=== PATIENT | female | born 2000 | race Caucasian/White ===

== ENCOUNTER 2024-10-29 21:08 | Emergency (ER) | payer SELFPAY ==
[2024-10-29] MEDS ORDERED: predniSONE 20 MG TAB ONE (21:28)
[2024-10-29] MEDS ORDERED: METHYLPREDNISOLONE 125 MG INJ ONE (21:28)
[2024-10-29] MEDS ORDERED: DIPHENHYDRAMINE 50 MG/ML VIAL ONE (21:29)
[2024-10-29] MEDS ORDERED: FAMOTIDINE 20 MG/2 ML VIAL IV ONE (21:29)
[2024-10-29] MEDS ORDERED: NA CHLORIDE 0.9% 1,000 ML ONE (21:29)
[2024-10-29 21:54] LABS: Absolute Lymphocytes (CBC) 2.4 K/uL (0.7-4.9); Hematocrit 39.3 % (36.0-45.0); Hemoglobin 13.9 g/dL (12.0-15.0); MCH 31.8 pg (27.0-35.0); MCHC 35.3 g/dL (32.0-36.0); MCV 90.2 fL (80-100); MPV 8.3 fL (7.6-11.3); Nucleated RBC Absolute Count 0.0 (0-0); Nucleated Red Blood Cells % 0.2 % (0-0); RBC Red Blood Cell Count 4.36 M/uL (3.86-4.86); White Blood Count 7.60 thou/uL (4.3-10.9)
[2024-10-29 21:57] LABS: Sqamous Epithelial <5 /HPF (None Seen); Urine Culture Reflex Order REFLEXED; Urine Microscopic Reflex YN ORDER UMIC
[2024-10-29 22:13] LABS: ALT/SGPT 24.0 U/L (13-56); AST/SGOT 14.0 U/L (15-37); Albumin 3.7 g/dL (3.4-5.0); Albumin/Globulin Ratio 1.2 (1.1-1.8); Alkaline Phosphatase 60.0 U/L (45-117); Anion Gap 8.7 mEq/L (5.0-15.0); BUN Blood Urea Nitrogen 14.0 mg/dL (7-18); Globulin 3.2 g/dL (2.3-3.5); Glucose Level 100.0 mg/dL (74-106); Potassium 3.7 mEq/L (3.5-5.1)
--- NOTE | 2024-10-29 22:20 | ER ---
Nurse's Notes [facility] Name: Rose Flores Age: 24 yrs Sex: Female : 2000 Arrival Date: 10/29/2024 Time: 21:08 Bed 3 Private MD: Diagnosis: Allergy, unspecified;Urticaria, unspecified;UTI/ Urinary tract infection, site not specified Presentation: 10/29 21:22 Chief complaint: Patient states: I was doing some yard work yesterday and this morning bm8 woke up with minor swelling, stinging and redness to face and chest. I also feel like I am having some trouble breathing. 21:22 Coronavirus screen: At this time, the client does not indicate any symptoms associated bm8 with coronavirus-19. Ebola Screen: No symptoms or risks identified at this time. Onset: The symptoms/episode began/occurred gradually. Anaphylaxis evaluation, no signs or symptoms of anaphylaxis were noted. Initial Sepsis Screen: Does the patient meet any 2 criteria? No. Patient's initial sepsis screen is negative. Does the patient have a suspected source of infection? No. Patient's initial sepsis screen is negative. Risk Assessment: Do you want to hurt yourself or someone else? Patient reports no desire to harm self or others. Onset of symptoms was October 29, 2024 at 07:00. 21:22 Method Of Arrival: Ambulatory 8 21:22 Acuity: JUANITO 3 bm8 21:39 Care prior to arrival: Medication(s) given: Benadryl 100 mg po \T\ 1700. bm8 Triage Assessment: 21:36 General: Appears in no apparent distress. uncomfortable, Behavior is calm, cooperative, bm8 appropriate for age. Pain: Complains of pain in face and chest on skin Pain currently is 6 out of 10 on a pain scale. EENT: No deficits noted. No signs and/or symptoms were reported regarding the EENT system. Neuro: No deficits noted. Level of Consciousness is awake, alert, obeys commands, Oriented to person, place, time, situation, Appropriate for age. Cardiovascular: Denies chest pain, Heart tones S1 S2 present Capillary refill < 3 seconds in bilateral fingers Patient's skin is warm and dry. Respiratory: Airway is patent Respiratory effort is even, unlabored, Respiratory pattern is regular, symmetrical, Breath sounds are clear bilaterally. the patient reports symptoms have resolved. GI: No deficits noted. No signs and/or symptoms were reported involving the gastrointestinal system. : No deficits noted. No signs and/or symptoms were reported regarding the genitourinary system. Derm: Rash noted that is red, on face, scalp, back and chest Reports itching, stinging. Musculoskeletal: No deficits noted. No signs and/or symptoms reported regarding the musculoskeletal system. 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 - Infectious Disease History:: Denies. - Social history:: Smoking status: Patient reports the use of cigarette tobacco products, smokes one pack cigarettes per day. - Family history:: not pertinent. Screenin:[address] [facility] ED Fall Risk Assessment (Adult) History of falling in the last 3 months, bm8 including since admission No falls in past 3 months (0 pts) Confusion or Disorientation No (0 pts) Intoxicated or Sedated No (0 pts) Impaired Gait No (0 pts) Mobility Assist Device Used No (0 pt) Altered Elimination No (0 pt) Score/Fall Risk Level 0 - 2 = Low Risk Oriented to surroundings, Maintained a safe environment, Educated pt \T\ family on fall prevention, incl call for assistance when getting out of bed, Assessed \T\ reinforced patient's understanding of fall precautions, Hourly rounding (assess needs \T\ fall precautionary measures) done, Used ambulatory aids as needed (educated on \T\ assisted with), Used gait belt as appropriate. Abuse screen: Denies threats or abuse. Nutritional screening: No deficits noted. Tuberculosis screening: No symptoms or risk factors identified. Assessment: 22:30 Reassessment: Patient appears in no apparent distress at this time. Patient and/or bm8 family updated on plan of care and expected duration. Pain level reassessed. Patient is alert, oriented x 3, equal unlabored respirations, skin warm/dry/pink. Patient states feeling better. Patient states symptoms have improved. Reassessment: redness is reduced, mild stinging still present. Respiratory: Airway is patent Respiratory effort is even, unlabored, Respiratory pattern is regular, symmetrical, Breath sounds are clear bilaterally. Vital Signs: 21:22 BP 119 / 79; Pulse 71; Resp 17; Temp 98.9; Pulse Ox 100% on R/A; Weight 68.04 kg; bm8 Height 5 ft. 2 in. ; Pain 6/10; 22:30 BP 109 / 65; Pulse 70; Resp 17; Temp 98.9; Pulse Ox 96% ; Pain 2/10; bm8 21:22 Body Mass Index 27.44 (68.04 kg, 157.48 cm) bm8 21:22 Pain Scale: Adult bm8 22:30 Pain Scale: Adult bm8 [place] Coma Score: 21:38 Eye Response: spontaneous(4). Motor Response: obeys commands(6). Verbal Response: bm8 oriented(5). Total: 15. 22:30 Eye Response: spontaneous(4). Motor Response: obeys commands(6). Verbal Response: bm8 oriented(5). Total: 15. ED Course: 21:09 Patient arrived in ED. mr 21:12 Arian Meyer MD is Attending Physician. hernando 21:33 Gonsalo Harrington, RN is Primary Nurse. bm8 21:36 Triage completed. bm8 21:38 Arm band placed on right wrist. bm8 21:38 Patient has correct armband on for positive identification. Bed in low position. Call bm8 light in reach. Side rails up X 1. Client placed on continuous cardiac and pulse oximetry monitoring. NIBP monitoring applied. classroom monitor on. Pulse ox on. NIBP on. Door closed. Noise minimized. Pillow given. Verbal reassurance given. Head of bed elevated. 21:38 No provider procedures requiring assistance completed. Initial lab(s) drawn, by ED bm8 staff, sent to lab. Inserted saline lock: 18 gauge in right upper arm, using aseptic technique. Blood collected. Flushed with 10 mL NS. Patient maintains SpO2 saturation greater than 95% on room air. 22:30 Provided Education on: post er care. bm8 22:39 IV discontinued, intact, bleeding controlled, No redness/swelling at site. Pressure bm8 dressing applied. Administered Medications: 21:35 Drug: NS 0.9% IV 1000 ml IV at 1000 ml once; to be given as a bolus over 60 minutes bm8 Route: IV; Rate: 1000 ml; Site: right upper arm; 22:30 Follow up: Response: No adverse reaction; IV Status: Completed infusion bm8 21:35 Drug: MethylPrednisoLONE IVP 125 mg IVP once Route: IVP; Site: right upper arm; bm8 22:30 Follow up: Response: No adverse reaction bm8 21:36 Drug: Famotidine IVP 40 mg IVP once; dilute with 10 mL 0.9% NaCl; give over 2 minutes bm8 Route: IVP; Site: right upper arm; 22:30 Follow up: Response: No adverse reaction bm8 21:38 Drug: predniSONE PO 60 mg PO once Route: PO; rg5 22:30 Follow up: Response: No adverse reaction bm8 21:44 Not Given (Duplicate Order): [id number] mg IVP once hernando 22:24 Not Given (Patient Refused): kkagxklbcqlexqn27 mg IVP once 22:28 Drug: Rocephin IV 1 grams IV at per protocol once; Given slow IV push per pharmacy bm8 instructions Route: IV; Rate: per protocol; Site: right upper arm; 22:35 Follow up: Response: No adverse reaction; IV Status: Completed infusion bm8 22:39 Follow up: Response: No adverse reaction; IV Status: Completed infusion bm8 Medication: 21:38 VIS not applicable for this client. bm8 Outcome: 22:18 Discharge ordered by . [facility] 22:39 Discharged to home ambulatory, bm8 22:39 Condition: stable 22:39 Discharge instructions given to patient, Instructed on discharge instructions, follow up and referral plans. no drinking with medication, no driving heavy equipment, medication usage, safety practices, Demonstrated understanding of instructions, follow-up care, medications, Prescriptions given X 5 22:40 Patient left the ED. bm8 Addendum: 11/03/2024 17:04 Addendum: Culture Results: Positive urine culture. Bacteria is resistant to, has s s intermediate sensitivity, or is not tested against prescribed antibiotics. Report given to SHANTAL for further evaluation and then to psychiatry adult physician for follow up with patient. Phone call Attempt #1 Nay Shelby NP recommends to stop taking Cipro at take Bactrim at this time. Pt verbalizes understanding. RX called in to Health system pharmacy in as requested. Signatures: Arian Meyer MD MD cha Rivera, Mary, Reg Reg mr Sushma Dong, RN RN ss Gonsalo Harrington RN RN 8 Robert Weeks, AVTAR RN 5 Lana Bacon RN Corrections: (The following items were deleted from the chart) 10/29 22:29 21:35 MethylPrednisoLONE IVP 125 mg IVP in right antecubital [place] [id number] 22: 21:36 Famotidine IVP 40 mg IVP in right antecubital [place] [address] 22:30 21:35 NS 0.9% IV 1000 ml IV at 1000 ml in right antecubital [place] [address]
--- NOTE | 2024-10-29 22:20 | EDPHYS ---
Physician Documentation [facility] Name: Rose Flores Age: 24 yrs Sex: Female : 2000 Arrival Date: 10/29/2024 Time: 21:08 Bed 3 Private MD: RADHA Physician Arian Meyer HPI: 10/29 21:34 This 24 yrs old Female presents to ER via Unassigned with complaints of hernando Allergic Reaction. 21:34 The patient presents with rash, redness of skin. Onset: The symptoms/episode hernando began/occurred 2 day(s) ago. Associated signs and symptoms: The patient has no apparent associated signs or symptoms. Possible causes: The patient has no known obvious cause for the symptoms. At home the patient or guardian has treated the symptoms with Benadryl. Severity of symptoms: At their worst the symptoms were mild in the emergency department the symptoms are unchanged. The patient has experienced similar episodes in the past, a few times. 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 - Infectious Disease History:: Denies. - Social history:: Smoking status: Patient reports the use of cigarette tobacco products, smokes one pack cigarettes per day. - Family history:: not pertinent. ROS: 21:34 Constitutional: Negative for fever, chills, and weight loss, Eyes: Negative for injury, hernando pain, redness, and discharge, ENT: Negative for injury, pain, and discharge, Neck: Negative for injury, pain, and swelling, Cardiovascular: Negative for chest pain, palpitations, and edema, Respiratory: Negative for shortness of breath, cough, wheezing, and pleuritic chest pain, Abdomen/GI: Negative for abdominal pain, nausea, vomiting, diarrhea, and constipation, Back: Negative for injury and pain, : Negative for injury, bleeding, discharge, and swelling, MS/Extremity: Negative for injury and deformity, Neuro: Negative for headache, weakness, numbness, tingling, and seizure, Psych: Negative for depression, anxiety, suicide ideation, homicidal ideation, and hallucinations, Allergy/Immunology: Negative for hives, rash, and allergies, Endocrine: Negative for neck swelling, polydipsia, polyuria, polyphagia, and marked weight changes, Hematologic/Lymphatic: Negative for swollen nodes, abnormal bleeding, and unusual bruising, 21:34 Skin: Positive for rash, Exam: 21:34 Constitutional: This is a well developed, well nourished patient who is awake, alert, hernando and in no acute distress. Head/Face: Normocephalic, atraumatic. Eyes: Pupils equal round and reactive to light, extra-ocular motions intact. Lids and lashes normal. Conjunctiva and sclera are non-icteric and not injected. Cornea within normal limits. Periorbital areas with no swelling, redness, or edema. ENT: Nares patent. No nasal discharge, no septal abnormalities noted. Tympanic membranes are normal and external auditory canals are clear. Oropharynx with no redness, swelling, or masses, exudates, or evidence of obstruction, uvula midline. Mucous membranes moist. Neck: Trachea midline, no thyromegaly or masses palpated, and no cervical lymphadenopathy. Supple, full range of motion without nuchal rigidity, or vertebral point tenderness. No Meningismus. Chest/axilla: Normal chest wall appearance and motion. Nontender with no deformity. No lesions are appreciated. Cardiovascular: Regular rate and rhythm with a normal S1 and S2. No gallops, murmurs, or rubs. Normal PMI, no JVD. No pulse deficits. Respiratory: Lungs have equal breath sounds bilaterally, clear to auscultation and percussion. No rales, rhonchi or wheezes noted. No increased work of breathing, no retractions or nasal flaring. Abdomen/GI: Soft, non-tender, with normal bowel sounds. No distension or tympany. No guarding or rebound. No evidence of tenderness throughout. Back: No spinal tenderness. No costovertebral tenderness. Full range of motion. Female : Normal external genitalia. MS/ Extremity: Pulses equal, no cyanosis. Neurovascular intact. Full, normal range of motion., bilateral aka Neuro: Awake and alert, GCS 15, oriented to person, place, time, and situation. Cranial nerves II-XII grossly intact. Motor strength 5/5 in all extremities. Sensory grossly intact. Cerebellar exam normal. Normal gait. Psych: Awake, alert, with orientation to person, place and time. Behavior, mood, and affect are within normal limits. 21:34 Skin: Appearance: Color: erythematous, Temperature: normal temperature, Moisture: normal moisture, petechiae, not noted, ecchymosis, not noted, abscess, not appreciated, cellulitis, is not appreciated, induration, is not appreciated, Vital Signs: 21:22 BP 119 / 79; Pulse 71; Resp 17; Temp 98.9; Pulse Ox 100% on R/A; Weight 68.04 kg; bm8 Height 5 ft. 2 in. ; Pain 6/10; 22:30 BP 109 / 65; Pulse 70; Resp 17; Temp 98.9; Pulse Ox 96% ; Pain 2/10; bm8 21:22 Body Mass Index 27.44 (68.04 kg, 157.48 cm) bm8 21:22 Pain Scale: Adult bm8 22:30 Pain Scale: Adult bm8 [place] Coma Score: 21:38 Eye Response: spontaneous(4). Motor Response: obeys commands(6). Verbal Response: bm8 oriented(5). Total: 15. 22:30 Eye Response: spontaneous(4). Motor Response: obeys commands(6). Verbal Response: bm8 oriented(5). Total: 15. MDM: 21:29 Medical Screening Exam initiated hernando 21:38 Differential diagnosis: anaphylaxis, angioedema, Arrhythmias Status Asthmaticus hernando urticaria. Data reviewed: vital signs, nurses notes, lab test result(s). Consideration of Admission/Observation Escalation of care including admission/observation considered. I considered the following discharge prescriptions or medication management in the emergency department Medications were administered in the Emergency Department. See MAR. Test considered but Not performed: EKG: no ekg. 10/29 21:15 Order name: CBC with Diff; Complete Time: 22:08 [facility] 10/29 21:15 Order name: CMP; Complete Time: : [facility] 10/29 21:15 Order name: UA Rfx Kodi Cult if indicated; Complete Time: 22:08 [facility] 10/29 21:15 Order name: PREGU; Complete Time: 22:08 [facility] 10/29 22:02 Order name: Urine Culture EDMS Administered Medications: 21:35 Drug: NS 0.9% IV 1000 ml IV at 1000 ml once; to be given as a bolus over 60 minutes bm8 Route: IV; Rate: 1000 ml; Site: right upper arm; 22:30 Follow up: Response: No adverse reaction; IV Status: Completed infusion bm8 21:35 Drug: MethylPrednisoLONE IVP 125 mg IVP once Route: IVP; Site: right upper arm; bm8 22:30 Follow up: Response: No adverse reaction bm8 21:36 Drug: Famotidine IVP 40 mg IVP once; dilute with 10 mL 0.9% NaCl; give over 2 minutes bm8 Route: IVP; Site: right upper arm; 22:30 Follow up: Response: No adverse reaction bm8 21:38 Drug: predniSONE PO 60 mg PO once Route: PO; rg5 22:30 Follow up: Response: No adverse reaction bm8 21:44 Not Given (Duplicate Order): nsfrqevycomlydr05 mg IVP once hernando 22:24 Not Given (Patient Refused): adqqrcrzdalvakp62 mg IVP once zm 22:28 Drug: Rocephin IV 1 grams IV at per protocol once; Given slow IV push per pharmacy bm8 instructions Route: IV; Rate: per protocol; Site: right upper arm; 22:35 Follow up: Response: No adverse reaction; IV Status: Completed infusion bm8 22:39 Follow up: Response: No adverse reaction; IV Status: Completed infusion bm8 Disposition Summary: 10/29/24 22:18 Discharge Ordered Notes: Location: Home hernando Problem: new hernando Symptoms: have improved hernando Condition: Stable hernando Diagnosis - Allergy, unspecified hernando - Urticaria, unspecified hernando - UTI/ Urinary tract infection, site not specified hernando Followup: hernando - With: Private Physician - When: 2 - 3 days - Reason: Recheck today's complaints, Continuance of care, Re-evaluation by your physician Discharge Instructions: - Discharge Summary Sheet hernando - Allergies, Adult hernando - Hives hernando - Urinary Tract Infection, Adult hernando - Urinary Tract Infection, Adult, Sfht-ry-Uaii hernando - Rash, Adult, Arbk-ff-Klmu hernando - Hives, Zofh-vb-[id number] hernando - Rash, Pediatric, [place]-iv-Dhru hernando Forms: - Medication Reconciliation Form hernando - Antibiotic Education hernando - Prescription Opioid Use hernando - Patient Portal Instructions hernando - Leadership Thank You Letter [facility] Prescriptions: - EpiPen 2-Riccardo - inject 1 application INTRAMUSCULAR route once; 2 Pack; Refills: 0, Product hernando Selection Permitted - Pepcid 40 mg Oral tablet - take 1 tablet ORAL route 2 times per day; 28 tablet; Refills: 0, Product hernando Selection Permitted - Benadryl 25 mg Oral capsule - take 2 capsule ORAL route every 6 hours As needed; 40 tablet; Refills: 0, [facility] Product Selection Permitted - Cipro 250 mg Oral tablet - take 1 tablet ORAL route every 12 hours; 14 tablet; Refills: 0, Product hernando Selection Permitted - Prednisone 20 mg Oral Tablet - take 2 tablets ORAL route once daily for 5 days; 10 tablet; Refills: 0, Product hernando Selection Permitted Signatures: Dispatcher [employer] EDMS Arian Meyer MD MD cha McDonald, Brad RN RN bm8 Robert Weeks RN RN rg5 Lana Bacon RN zm Corrections: (The following items were deleted from the chart) 21:15 21:15 CBC+H.LAB.BRZ ordered. EDMS EDMS 21:15 21:15 COMPREHENSIVE METABOLIC PANEL+C.LAB.BRZ ordered. EDMS EDMS 21:15 21:15 UA Rfx Kodi Cult if indicated+U.LAB.BRZ ordered. EDMS EDMS 21:15 21:15 Test, Urine+UC.LAB.BRZ ordered. EDMS EDMS
[2024-10-29] MEDS ORDERED: NA CHLORIDE 0.9% 100 ML ONE (22:25)
[2024-10-29] MEDS ORDERED: CEFTRIAXONE 1000 MG/VIAL ONE (22:25)
[2024-10-29 22:45] VITALS: TEMP 98.9
[2024-10-29 22:47] VITALS: BP 109/65; O2SAT 96
== END 2024-10-29 22:40 | disposition home or self-care (01) ==
LOC: ER 21:08
DX: L50.9 Urticaria, unspecified (principal); N39.0 Urinary tract infection, site not specified; F17.210 Nicotine dependence, cigarettes, uncomplicated
CPT/HCPCS: 36415; 80053; 81001; 81025; 85025; 87077; 87086; 87088; 87186; 96361; 96374; 96375; 99285; J0696; J1200; J2919; J7030; J7512

== ENCOUNTER 2024-11-14 09:04 | Emergency (ER) | payer SELFPAY ==
--- NOTE | 2024-11-14 09:30 | EDPHYS ---
Physician Documentation [facility] Name: Rose Flores Age: 24 yrs Sex: Female : 2000 Arrival Date: 11/14/2024 Time: 09:04 Bed 7 Private MD: ED Physician Annmarie Mills HPI: 11/14 09:25 This 24 yrs old Female presents to ER via Unassigned with complaints of Rash. sp3 09:25 24-year-old female seen here 2 weeks ago for possible allergic reaction due to itching sp3 and redness now presents for recurrent and worsening symptoms. She states that her itching is too worse. She describes it as intertriginous with it also being on her feet, ankles and underarms. She is concerned about scabies and states that other people and family are now having similar symptoms.. Historical: - Allergies: : No Known Allergies; ap3 - PMHx: : None; ap3 - PSHx: 09:27 section; ap3 - Immunization history:: Adult Immunizations unknown. - Infectious Disease History:: Denies. - Social history:: Smoking status: Patient reports the use of cigarette tobacco products, smokes one-half pack cigarettes per day, Patient uses delta 8. ROS: 09:26 Constitutional: Negative for fever, chills, and weight loss, Eyes: Negative for injury, sp3 pain, redness, and discharge, ENT: Negative for injury, pain, and discharge, Neck: Negative for injury, pain, and swelling, Cardiovascular: Negative for chest pain, palpitations, and edema, Respiratory: Negative for shortness of breath, cough, wheezing, and pleuritic chest pain, Abdomen/GI: Negative for abdominal pain, nausea, vomiting, diarrhea, and constipation, Back: Negative for injury and pain, Neuro: Negative for headache, weakness, numbness, tingling, and seizure, Psych: Negative for depression, anxiety, suicide ideation, homicidal ideation, and hallucinations, Allergy/Immunology: Negative for hives, rash, and allergies, Endocrine: Negative for neck swelling, polydipsia, polyuria, polyphagia, and marked weight changes, Hematologic/Lymphatic: Negative for swollen nodes, abnormal bleeding, and unusual bruising, 09:26 All other systems are negative, Exam: : Constitutional: This is a well developed, well nourished patient who is awake, alert, sp3 and in no acute distress. Head/Face: Normocephalic, atraumatic. Eyes: Pupils equal round and reactive to light, extra-ocular motions intact. Lids and lashes normal. Conjunctiva and sclera are non-icteric and not injected. Cornea within normal limits. Periorbital areas with no swelling, redness, or edema. Neck: Trachea midline, no thyromegaly or masses palpated, and no cervical lymphadenopathy. Supple, full range of motion without nuchal rigidity, or vertebral point tenderness. No Meningismus. Chest/axilla: Normal chest wall appearance and motion. Nontender with no deformity. No lesions are appreciated. Cardiovascular: Regular rate and rhythm with a normal S1 and S2. No gallops, murmurs, or rubs. Normal PMI, no JVD. No pulse deficits. Respiratory: Lungs have equal breath sounds bilaterally, clear to auscultation and percussion. No rales, rhonchi or wheezes noted. No increased work of breathing, no retractions or nasal flaring. Abdomen/GI: Soft, non-tender, with normal bowel sounds. No distension or tympany. No guarding or rebound. No evidence of tenderness throughout. Back: No spinal tenderness. No costovertebral tenderness. Full range of motion. Neuro: Awake and alert, GCS 15, oriented to person, place, time, and situation. Cranial nerves II-XII grossly intact. Motor strength 5/5 in all extremities. Sensory grossly intact. Cerebellar exam normal. Normal gait. Psych: Awake, alert, with orientation to person, place and time. Behavior, mood, and affect are within normal limits. 09:26 Skin: Areas of eczematous scaling noted intertriginous, underarms, ankles, feet.. Vital Signs: 09:26 BP 115 / 67; Pulse 67; Resp 18; Temp 98; Pulse Ox 100% ; Weight 65.32 kg; ap3 MDM: 09:19 Medical Screening Exam initiated sp3 09:27 Data reviewed: vital signs, nurses notes. ED course: Differential diagnosis includes sp3 eczema, allergic reaction, scabies. She is most concerned about scabies and we will treat topically given low risk of any harm if misdiagnosed.. Administered Medications: No medications were administered Disposition Summary: 11/14/24 09:29 Discharge Ordered Notes: Location: Home sp3 Condition: Stable sp3 Diagnosis - Scabies sp3 Followup: sp3 - With: Private Physician - When: Upon discharge from the Emergency Department - Reason: Continuance of care Discharge Instructions: - Discharge Summary Sheet sp3 - Scabies, Adult sp3 Forms: - Work release form eb - Medication Reconciliation Form sp3 - Antibiotic Education sp3 - Prescription Opioid Use sp3 - Patient Portal Instructions sp3 - Leadership Thank You Letter sp3 Prescriptions: - permethrin 1 % Topical liquid - apply 120 milliliter TOPICAL route once; 1 Unspecified; Refills: 0, Product sp3 Selection Permitted Signatures: Roxane Looney RN RN ap3 Annmarie Mills MD MD sp3
--- NOTE | 2024-11-14 09:30 | ER ---
Nurse's Notes [facility] Name: Rose Flores Age: 24 yrs Sex: Female : 2000 Arrival Date: 11/14/2024 Time: 09:04 Bed 7 Private MD: Diagnosis: Scabies Presentation: 11/14 09:26 Chief complaint: Patient states: she has been itching on her face, arms, stomach, hands ap3 and feet since 10/22 after moving from [place]. patient reports that the symptoms are now spreading to the rest of her family and her neighbors as well. Coronavirus screen: At this time, the client does not indicate any symptoms associated with coronavirus-19. Ebola Screen: No symptoms or risks identified at this time. Initial Sepsis Screen: Does the patient meet any 2 criteria? No. Patient's initial sepsis screen is negative. Does the patient have a suspected source of infection? No. Patient's initial sepsis screen is negative. Risk Assessment: Do you want to hurt yourself or someone else? Patient reports no desire to harm self or others. Onset of symptoms was October 22, 2024. 09:26 Method Of Arrival: Ambulatory ap3 09:26 Acuity: JUANITO 4 ap3 Triage Assessment: 09:28 General: Appears uncomfortable, Behavior is calm, cooperative, appropriate for age. ap3 Pain: Complains of pain in face, abdomen, right hand, left hand, right arm and left arm. Neuro: Level of Consciousness is awake, alert, obeys commands, Oriented to person, place, time, situation. Cardiovascular: Patient's skin is warm and dry. Respiratory: Airway is patent Respiratory effort is even, unlabored, Respiratory pattern is regular, symmetrical. Derm: Reports itching. Historical: - Allergies: 09:27 No Known Allergies; ap3 - PMHx: 09:27 None; ap3 - PSHx: 09:27 section; ap3 - Immunization history:: Adult Immunizations unknown. - Infectious Disease History:: Denies. - Social history:: Smoking status: Patient reports the use of cigarette tobacco products, smokes one-half pack cigarettes per day, Patient uses delta 8. Screenin:29 Abuse screen: Denies threats or abuse. Nutritional screening: No deficits noted. ap3 Tuberculosis screening: No symptoms or risk factors identified. 09:55 [facility] ED Fall Risk Assessment (Adult) History of falling in the last 3 months, jl7 including since admission No falls in past 3 months (0 pts) Confusion or Disorientation No (0 pts) Intoxicated or Sedated No (0 pts) Impaired Gait No (0 pts) Mobility Assist Device Used No (0 pt) Altered Elimination No (0 pt) Score/Fall Risk Level 0 - 2 = Low Risk Oriented to surroundings, Maintained a safe environment. Assessment: 09:55 General: Appears in no apparent distress. uncomfortable, Behavior is calm, cooperative, jl7 appropriate for age. Pain: Denies pain. Neuro: Priest Agitation-Sedation Scale (RASS): 0 - Alert and Calm Level of Consciousness is awake, alert, obeys commands, Oriented to person, place, time, situation. Cardiovascular: Patient's skin is warm and dry. Respiratory: Airway is patent Respiratory effort is even, unlabored, Respiratory pattern is regular, symmetrical. Derm: Skin is pink, warm \T\ dry. Rash noted that is itchy, red. Vital Signs: 09:26 BP 115 / 67; Pulse 67; Resp 18; Temp 98; Pulse Ox 100% ; Weight 65.32 kg; ap3 ED Course: 09:05 Patient arrived in ED. mr 09:06 Annmarie Mills MD is Attending Physician. sp3 09:27 Triage completed. ap3 09:29 Arm band placed on right wrist. ap3 09:30 Patient has correct armband on for positive identification. Bed in low position. Call ap3 light in reach. Side rails up X 1. Pulse ox on. NIBP on. 09:55 Lobo Gómez RN is Primary Nurse. jl7 09:55 Provided Education on: discharge. jl7 09:55 No provider procedures requiring assistance completed. Patient did not have IV access jl7 during this emergency room visit. Administered Medications: No medications were administered Medication: :55 VIS not applicable for this client. jl7 Outcome: 09:29 Discharge ordered by . sp3 09:55 Discharged to home ambulatory, jl7 09:55 Condition: stable 09:55 Discharge instructions given to patient, Instructed on discharge instructions, follow up and referral plans. medication usage, Demonstrated understanding of instructions, follow-up care, medications, Prescriptions given X 1, 09:56 Patient left the ED. jl7 Signatures: Ryanne Downey, Reg Reg mr Lobo Gómez, RN RN jl7 Roxane Looney RN RN ap3 Annmarie Mills MD MD sp3
[2024-11-14 10:05] VITALS: BP 115/67; TEMP 98; O2SAT 100
== END 2024-11-14 09:56 | disposition home or self-care (01) ==
LOC: ER 09:04
DX: B86 Scabies (principal); F17.210 Nicotine dependence, cigarettes, uncomplicated
CPT/HCPCS: 99283